=== PATIENT | male | born 1950 | race African-American/Black ===

== ENCOUNTER 2017-05-23 09:31 | Emergency (ER) | payer MEDICARE, MEDICAID ==
[~2017-05-23] VITALS: Ht 167.6 cm; Wt 75.0 kg
[~2017-05-23 09:31] MED LIST: ASPI-785; BLOOD PRESSURE MEDICATION; FLOMAX
[2017-05-23 09:36] VITALS: BP 157/104
== END 2017-05-23 11:48 | disposition home or self-care (01) ==
LOC: ER 09:57
DX: J20.9 Acute bronchitis, unspecified (principal); I10 Essential (primary) hypertension; I25.10 Atherosclerotic heart disease of native coronary artery without angina pectoris; E78.00 Pure hypercholesterolemia, unspecified; I25.2 Old myocardial infarction; Z87.891 Personal history of nicotine dependence; Z98.890 Other specified postprocedural states
CPT/HCPCS: 71045; 99283